=== PATIENT | male | born 1960 | race Caucasian/White ===

== ENCOUNTER 2017-02-06 10:22 | Day surgery (SDC) | payer MEDICARE, MEDICAID ==
[~2017-02-06 10:22] MED LIST: Acetaminophen/HYDROcodone 325-5 MG Tab PO PRN; Lactated Ringers 1,000 ML IV SCH; ceFAZolin 2 GM in Premix Bag 1 BAG IV SCH
--- NOTE | 2017-02-06 10:58 | PCM.PREANE ---
Preanesthetic Assessment - Anesthesia/Transfusion/Family Hx Anesthesia History: Prior Anesthesia Without Reaction Family History of Anesthesia Reaction: No Transfusion History: No Prior Transfusion(s) - Review of Systems General: No Symptoms Pulmonary: No Symptoms Cardiovascular: No Symptoms Gastrointestinal: No Symptoms Neurological: No Symptoms Other: Reports: None - Physical Assessment NPO Status Date: 02/05/17 Height: 1.8 m Weight: 79.379 kg ASA Class: 2 Mental Status: Alert & Oriented x3 Airway Class: Mallampati = 1 Dentition: Reports: Normal Dentition ROM/Head Extension: Full Lungs: Clear to Auscultation, Normal Respiratory Effort Cardiovascular: Regular Rate, Regular Rhythm - Allergies Allergies/Adverse Reactions: Allergies Allergy/AdvReac Type Severity Reaction Status Date / Time No Known Allergies Allergy Verified 01/31/17 13:32 - Anesthesia Plan Pre-Op Medication Ordered: None - Acknowledgements Anesthesia Type Planned: General Anesthesia Pt an Appropriate Candidate for the Planned Anesthesia: Yes Alternatives and Risks of Anesthesia Discussed w Pt/Guardian: Yes Pt/Guardian Understands and Agrees with Anesthesia Plan: Yes Additional Comments: gastric bypass 6 mo ago with sig weight loss, no longer has ROGELIO, DM@, or GERD. Plan GA with LMA or mask because of the size of the ganglion. 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 Psychiatric History: Reports: Depression, Developmental Delay, Learning Disability - Past Surgical History GI Surgical History: Reports: Bariatric Procedure Neurological Surgical History: Reports: Laminectomy Other Neurological Surgeries/Procedures: x2 - SUBSTANCE USE Smoking Status *Q: Never Smoker Recreational Drug Use History: No - HOME MEDS Home Medications: Home Meds Acetaminophen [Tylenol Extra Strength] 500 mg PO Q4H PRN 01/31/17 [History] Aspirin [Adult Low Dose Aspirin EC] 81 mg PO DAILY 01/31/17 [History] Citalopram Hydrobromide [Celexa] 20 mg PO DAILY 01/31/17 [History] Metoprolol Succinate [Toprol XL] 25 mg PO DAILY 01/31/17 [History] Pravastatin Sodium 20 mg PO DAILY 01/31/17 [History] Topiramate [Trokendi Xr] 50 mg PO BID 01/31/17 [History] amLODIPine Besylate [Norvasc] 2.5 mg PO DAILY 01/31/17 [History] - CURRENT (IN HOUSE) MEDS Current Meds: Current Medications Hydrocodone Bitart/Acetaminophen ([place]well 325-5 Mg) 1 - 2 tab PO Q4H PRN PRN Reason: Pain Cefazolin Sodium/Dextrose 2 gm (/ Premix) 50 mls @ 100 mls/hr IV ONCALL JENIFER Lactated Ringer's (Ringers, Lactated) 1,000 mls @ 100 mls/hr IV ASDIRECTED JENIFER
[2017-02-06] MEDS ORDERED: fentaNYL 100 MCG/2 ML SDV ONE (12:20)
[2017-02-06] MEDS ORDERED: Midazolam 1 MG/ML 2 ML SDV ONE (12:20)
[2017-02-06] MEDS ORDERED: Propofol 200 MG/20 ML SDV ONE (12:20)
[2017-02-06] MEDS ORDERED: Dexamethasone 4 MG/ML 5 ML MDV ONE (12:21)
[2017-02-06] MEDS ORDERED: Ondansetron 4 MG/2 ML SDV ONE (12:21)
[2017-02-06] MEDS ORDERED: Bupivacaine 0.25% 10 ML SDV ONE (12:57)
[2017-02-06] MEDS ORDERED: Lidocaine 1% 20 ML MDV ONE (12:57)
[2017-02-06] MEDS ORDERED: fentaNYL 100 MCG/2 ML SDV IVPUSH PRN (13:36)
[2017-02-06] MEDS ORDERED: ePHEDrine 50 MG/ML SDV ONE (14:24)
--- NOTE | 2017-02-06 14:51 | PCM.OPNOTE ---
- General Post-Op/Procedure Note Date of Surgery/Procedure: 02/06/17 Post-Op Diagnosis: left volar wrist ganglion Anesthesia Technique: General LMA Primary Surgeon: Adilia Estrada EBStefan in mLs: 10 Condition: Good Free Text/Narrative:: tt=58 min #[id number]
--- NOTE | 2017-02-06 15:20 | PCM.POSTAN ---
POST ANESTHESIA ASSESSMENT - MENTAL STATUS Mental Status: Alert - RESPIRATORY Respiratory Status: Respiratory Rate WNL, Airway Patent, O2 Saturation Stable - CARDIOVASCULAR CV Status: Pulse Rate WNL, Blood Pressure Stable - GASTROINTESTINAL GI Status: No Symptoms - PAIN Pain Score: 1 - POST OP HYDRATION Hydration Status: Adequate & Stable
--- NOTE | 2017-02-06 15:57 | PCM48HPAN ---
Post Anesthesia Note - EVALUATION WITHIN 48HRS OF ANESTHETIC Vital Signs in Normal Range: Yes Patient Participated in Evaluation: Yes Respiratory Function Stable: Yes Airway Patent: Yes Cardiovascular Function Stable: Yes Hydration Status Stable: Yes Pain Control Satisfactory: Yes Nausea and Vomiting Control Satisfactory: Yes Mental Status Recovered: Yes
[2017-02-06 16:31] VITALS: BP 142/80
--- NOTE | 2017-02-06 20:55 | OR ---
SURGEON: Adilia Estrada MD DATE OF PROCEDURE: 02/06/2017 PREOPERATIVE DIAGNOSIS: Left wrist volar ganglion cyst. POSTOPERATIVE DIAGNOSIS: Left wrist volar ganglion cyst. PROCEDURE: Excision of left wrist volar ganglion cyst. HUMANITIES AND LANGUAGES PROFESSOR: Tori Briggs RN. ANESTHESIA: General. ESTIMATED BLOOD LOSS: 10 mL. TOURNIQUET TIME: 15 minutes. COMPLICATIONS: The radial artery was wrapped around the ganglion. I attempted to carefully dissect this from the ganglion. Upon tourniquet deflation, it was noted that there was a small laceration of the radial artery. The tourniquet was reinflated and the tear was closed with a 5-0 chromic suture. The tourniquet was again deflated and no further bleeding was noted. The artery was able to be visualized and did appear to be intact. He had good blood supply to his hand. IMPLANTS USED: None. BRIEF HISTORY: Fredo is a 56-year-old male, who has had a history of a left wrist volar ganglion. He did have attempted aspiration in [place]. This resulted in recurrence of a ganglion cyst. Due to his lack of response to conservative treatment, I recommended surgical intervention. The risks and goals of procedure were discussed with the patient and were documented preoperatively. He agreed to proceed. DESCRIPTION OF PROCEDURE: The patient was properly identified and brought to the operating room. He was transferred from the OR cart and placed on the operating table in supine position. General anesthesia was administered. After adequate anesthesia was obtained, a well-padded tourniquet was applied to the forearm. The left upper extremity was then prepped in standard fashion using ChloraPrep solution. It was then sterilely draped. A time-out was performed to ensure correct site and procedure. Preoperative antibiotics were given. The surgical site had been marked preoperatively. The tourniquet was inflated to 250 mmHg. A horizontal incision was made centered over the volar ganglion in the natural skin lines. The subcutaneous tissues were incised and the ganglion cyst was identified. He did have some adherent of veins volarly and these were carefully dissected from the cyst and cauterized. The cyst was quite adherent to the underlying tissue and this did take considerable time to free the ganglion cyst. It was then noted that the what appeared to be the radial artery was adherent to the cyst. I carefully dissected this away as well. The ganglion cyst was eventually freed from its soft tissue constraints and was removed. The base of the cyst was cauterized with electrocautery to help prevent recurrence. The wound was then irrigated with saline solution. The tourniquet was deflated. It was immediately noted that there was a large amount of what appeared to be arterial blood flow from the wound. The tourniquet was reinflated. With careful inspection, it was noted that the previous vessel that had been dissected from the cyst did have a small tear in it. 5-0 chromic suture was used to repair the two tears noted in the artery. The tourniquet was again deflated. Further arterial bleeding appeared to be coming from the superficial tissues distal to the site of the repair. The tourniquet was again reinflated and there appeared to be a branch off the radial artery that was also cauterized. The tourniquet was again deflated at this time. No further bleeding was noted from the wound. The artery was able to be visualized and appeared to be bounding. There was no leaking noted. His hand pinked up nicely with deflation of the tourniquet. The subcutaneous tissues were then closed with 3-0 Vicryl. The skin was closed with a running 4-0 Monocryl suture. Steri- Strips and Benzoin were placed. Xeroform gauze was placed over the wound and a bulky dressing was applied. He was placed in a well-padded volar splint. He was awakened from his anesthetic and transferred back to the operating room cart. He was brought to recovery room in stable condition. All needle and sponge counts were correct. DON / YADIRA /[id number]
== END 2017-02-06 16:25 | disposition home or self-care (01) ==
LOC: MW.SDS 10:22
PROVIDERS: ATTEND Orthopaedic Surgery
DX: M67.432 Ganglion, left wrist (principal); E78.00 Pure hypercholesterolemia, unspecified; I10 Essential (primary) hypertension; F32.9 Major depressive disorder, single episode, unspecified; Z79.82 Long term (current) use of aspirin; Z79.899 Other long term (current) drug therapy; Z98.84 Bariatric surgery status; Z98.890 Other specified postprocedural states
CPT/HCPCS: 25111; A9270; J0690; J1100; J2250; J2405; J3010; J7120; 01810; 88304; J2704

== ENCOUNTER 2019-01-14 11:08 | Emergency (ER) | payer MEDICARE, MEDICAID ==
[2019-01-14] MEDS ORDERED: diphenhydrAMINE 50 MG Cap PO ONE (11:19)
[2019-01-14] MEDS ORDERED: methylPREDNISolone Sodium Succinate 125 MG/2 ML SDV IM ONE (11:20)
[2019-01-14 11:24] VITALS: BP 159/87
--- NOTE | 2019-01-14 11:25 | EDM.PDOC ---
ED HPI GENERAL MEDICAL PROBLEM - General Chief Complaint: Bite:Animal, Insect Stated Complaint: BEE STING Time Seen by Provider: 01/14/19 11:16 Source of Information: Reports: Patient History Limitations: Reports: No Limitations - History of Present Illness INITIAL COMMENTS - FREE TEXT/NARRATIVE: HISTORY AND PHYSICAL: History of present illness: Patient is a 58-year-old male presents to the ED today with concern of a bee sting to his middle finger on his right hand that occurred about an hour prior to arrival to the ED. Patient states when he gets on by a bee, he gets a rash all over his body so came to the ED. Patient states he does not become short of breath or have mouth/ throat swelling when he gets stung by a bee. Patient denies taking any medications before coming. Patient denies any other symptoms or concerns. Patient denies fever, chills, chest pain, shortness of breath, or cough. Denies headache, neck stiff ness, change in vision, syncope, or near syncope. Denies nausea, vomiting, abdominal pain, diarrhea, constipation, or dysuria. Has not noted any blood in urine or stool. Patient has been eating and drinking appropriately. Review of systems: As per history of present illness and below otherwise all systems reviewed and negative. Past medical history: As per history of present illness and as reviewed below otherwise noncontributory. Surgical history: As per history of present illness and as reviewed below otherwise noncontributory. Social history: See social history for further information Family history: As per history of present illness and as reviewed below otherwise noncontributory. Physical exam: General: Patient is alert, oriented, and in no acute distress. Patient sitting comfortably on exam table. HEENT: Atraumatic, normocephalic, pupils equal and reactive bilaterally, negative for conjunctival pallor or scleral icterus, mucous membranes moist, TMs normal bilaterally, throat clear, neck supple, nontender, trachea midline. No drooling or trismus noted. No meningeal signs. No hot potato voice noted. Lungs: Clear to auscultation, breath sounds equal bilaterally, chest nontender. Patient breathing comfortably without wheezing or stridor. Heart: S1S2, regular rate and rhythm without overt murmur Abdomen: Soft, nondistended, nontender. Negative for masses or hepatosplenomegaly. Negative for costovertebral tenderness. Pelvis: Stable nontender. Genitourinary: Deferred. Rectal: Deferred. Skin: Intact, warm, dry. No lesions or rashes noted. Extremities: Negative for cords or calf pain. Neurovascular unremarkable. There is a small pinpoint bite/sting laure on patient's right hand medial third digit without surrounding erythema or edema. Patient has full range of motion of the right hand without pain or difficulty. Radial pulses grossly intact with capillary refill less than 2 seconds. Neuro: Awake, alert, oriented. Cranial nerves II through XII unremarkable. Cerebellum unremarkable. Motor and sensory unremarkable throughout. Exam nonfocal. Notes: Discussed the importance for follow-up with primary care provider. Voices understanding and is agreeable to plan of care. Denies any further questions or concerns at this time. Diagnostics: None Therapeutics: Benadryl, Solu-Medrol Prescription: Medrol dose pack Impression: Bee sting, 3rd digit Plan: 1. While symptomatic continue to routinely take Benadryl. Take medication as prescribed. 2. You can alternate ibuprofen and Tylenol as directed for pain and discomfort. 3. Follow up with her primary care provider as discussed. Return to the ED as needed and as discussed. Definitive disposition and diagnosis as appropriate pending reevaluation and review of above. - Related Data Allergies Allergy/AdvReac Type Severity Reaction Status Date / Time No Known Allergies Allergy Verified 02/23/18 13:53 Home Meds: Home Meds Aspirin [Adult Low Dose Aspirin EC] 81 mg PO DAILY 01/31/17 [History] Metoprolol Succinate [Toprol XL] 25 mg PO DAILY 01/31/17 [History] amLODIPine Besylate [Norvasc] 2.5 mg PO DAILY 01/31/17 [History] Latanoprost/Pf [Latanoprost 0.005% Eye Drop] 7.5 ml OP DAILY 02/23/18 [History] Tamsulosin [Tamsulosin 24 Hr] 0.4 mg PO DAILY #10 cap.er 02/23/18 [Rx] traMADol [Ultram] 50 mg PO Q4H PRN #15 tab 02/23/18 [Rx] Past Medical History Other HEENT History: wears glasses Cardiovascular History: Reports: High Cholesterol, Hypertension Neurological History: Reports: Seizure Other Neuro History: 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 ED EXAM, ANIMAL BITE - Physical Exam Exam: See Below (See dictation) Course - Orders/Labs/Meds Orders: Active Orders 24 hr Category Date Time Status methylPREDNISolone Sod Succ [Solu-MEDROL] Med 01/14/19 11:20 Once 125 mg IM ONETIME ONE Medication Orders Methylprednisolone Sodium Succinate (Solu-Medrol) 125 mg IM ONETIME ONE Stop: 01/14/19 11:21 Meds: Medications Generic Name Dose Route Start Last Admin Trade Name Freq PRN Reason Stop Dose Admin Methylprednisolone Sodium Succinate 125 mg 01/14/19 11:20 Solu-Medrol IM 01/14/19 11:21 ONETIME ONE Discontinued Medications Generic Name Dose Route Start Last Admin Trade Name Freq PRN Reason Stop Dose Admin Diphenhydramine HCl 50 mg 01/14/19 11:19 Benadryl PO 01/14/19 11:20 ONETIME ONE Departure - Departure Time of Disposition: 11:24 Disposition: Home, Self-Care 01 Clinical Impression: Bee sting Qualifiers: Encounter type: initial encounter Injury intent: accidental or unintentional Qualified Code(s): T63.441A - Toxic effect of venom of bees, accidental ( unintentional), initial encounter - Discharge Information Referrals: PCP,None [Primary Care Provider] - Additional Instructions: The following information is given to patients seen in the emergency department who are being discharged to home. This information is to outline your options for follow-up care. We provide all patients seen in our emergency department with a follow-up referral. The need for follow-up, as well as the timing and circumstances, are variable depending upon the specifics of your emergency department visit. If you don't have a primary care physician on staff, we will provide you with a referral. We always advise you to contact your personal physician following an emergency department visit to inform them of the circumstance of the visit and for follow-up with them and/or the need for any referrals to a consulting specialist. The emergency department will also refer you to a specialist when appropriate. This referral assures that you have the opportunity for follow-up care with a specialist. All of these measure are taken in an effort to provide you with optimal care, which includes your follow-up. Under all circumstances we always encourage you to contact your private physician who remains a resource for coordinating your care. When calling for follow-up care, please make the office aware that this follow-up is from your recent emergency room visit. If for any reason you are refused follow-up, please contact the [facility] Emergency Department at and asked to speak to the emergency department charge nurse. [facility] [address] [place] [id number] [facility] [address] [place] [id number] 1. While symptomatic continue to routinely take Benadryl. Take medication as prescribed. 2. You can alternate ibuprofen and Tylenol as directed for pain and discomfort. 3. Follow up with her primary care provider as discussed. Return to the ED as needed and as discussed. - My Orders Last 24 Hours: My Active Orders 01/14/19 11:20 methylPREDNISolone Sod Succ [Solu-MEDROL] 125 mg IM ONETIME ONE - Assessment/Plan Last 24 Hours: My Active Orders 01/14/19 11:20 methylPREDNISolone Sod Succ [Solu-MEDROL] 125 mg IM ONETIME ONE
== END 2019-01-14 11:50 | disposition home or self-care (01) ==
LOC: MW.ED 11:08
DX: T63.441A Toxic effect of venom of bees, accidental (unintentional), initial encounter (principal); I10 Essential (primary) hypertension; Z79.82 Long term (current) use of aspirin; Z79.899 Other long term (current) drug therapy
CPT/HCPCS: 99282; A9270; J2930

== ENCOUNTER 2019-02-18 13:53 | Emergency (ER) | payer MEDICARE, MEDICAID ==
[2019-02-18] MEDS ORDERED: Ketorolac 30 MG/ML SDV IVPUSH ONE (14:13)
[2019-02-18] MEDS ORDERED: Ondansetron 4 MG/2 ML SDV IVPUSH ONE (14:13)
[2019-02-18] MEDS ORDERED: Sodium Chloride 0.9% 1,000 ML IV ONE (14:13)
--- NOTE | 2019-02-18 14:26 | EDM.PDOC ---
ED HPI GENERAL MEDICAL PROBLEM - General Chief Complaint: Back Pain or Injury Stated Complaint: BACK PAIN Time Seen by Provider: 02/18/19 14:03 Source of Information: Reports: Patient History Limitations: Reports: No Limitations - History of Present Illness INITIAL COMMENTS - FREE TEXT/NARRATIVE: HISTORY AND PHYSICAL: History of present illness: Patient is a 58-year-old male presenting to the emergency room for complaints of "low back pain". Patient states while picking up boxes today around 10 AM he "bent over and had immediate lower back pain". He states he had to sit down, however this did not help. He rates his pain at a 10 out of 10, stating that he also has pain shooting down his left leg. Patient denies any fever, chills, headache, change in vision, syncope or near syncope. He states he does get frequent kidney stones and has been having dysuria and hematuria. Denies any chest pain, shortness of breath or cough. Denies any abdominal pain, nausea, vomiting, diarrhea, constipation or dysuria. Has not noted any blood in stool. Patient has been eating and drinking appropriately. Review of systems: As per history of present illness and below otherwise all systems reviewed and negative. Past medical history: As per history of present illness and as reviewed below otherwise noncontributory. Surgical history: As per history of present illness and as reviewed below otherwise noncontributory. Social history: See social history for further information Family history: As per history of present illness and as reviewed below otherwise noncontributory. Physical exam: General: Patient is a well-nourished 88-year-old male. Alert and orientated. Nontoxic in appearance and in no acute distress. HEENT: Atraumatic, normocephalic, pupils equal and reactive bilaterally, negative for conjunctival pallor or scleral icterus, mucous membranes moist, TMs normal bilaterally, throat clear, neck supple, nontender, trachea midline. No drooling or trismus noted. No meningeal signs. No hot potato voice noted. Lungs: Clear to auscultation, breath sounds equal bilaterally, chest nontender. Heart: S1S2, regular rate and rhythm without overt murmur Abdomen: Soft, nondistended, nontender. Negative for masses or hepatosplenomegaly. Negative for costovertebral tenderness. C-spine/Back: No pinpoint vertebral tenderness upon palpation. Due to palpation on the right SI joint. No crepitus, step-offs or obvious deformities. Patient is ambulatory into the emergency room without difficulty or deficit. Able to rock back on heels and walk on toes. Denies any urinary or fecal incontinence. Denies any numbness, tingling or saddle paresthesia. Skin: Intact, warm, dry. No lesions or rashes noted. Extremities: Atraumatic, moves all extremities per self without difficulty or deficits, negative for cords or calf pain. Neurovascular unremarkable. Neuro: Awake, alert, oriented. Cranial nerves II through XII unremarkable. Cerebellum unremarkable. Motor and sensory unremarkable throughout. Exam nonfocal. Notes: Ultrasound shows a cyst within the liver. Small gallstones in the gallbladder. No acute findings are noted. Lab work is unremarkable. Patient states he previously had been on Ultram for his back pain but this medication "was " upon trying to get a refill. He states the Toradol was not alleviating his discomfort, we'll give him a few tablets of Ultram as he has found good relief with this in the past. Encouraged him to follow up with his primary care provider for further refills and further management of his chronic back pain. Supportive care measures were reviewed and discussed. Voices understanding and is agreeable to plan of care. Denies any further questions or concerns at this time. Diagnostics: UA, CBC, CMP, CT of abdomen and pelvis w/o Therapeutics: IV fluids, Toradol, Zofran Prescription: Ultram (#15) Impression: Lumbar Back Pain Plan: 1. Increase your oral fluids. 2. Tylenol and/or ibuprofen as needed for pain. 3. Follow-up with your primary care provider as we discussed. Return to the ED as needed and as discussed. Definitive disposition and diagnosis as appropriate pending reevaluation and review of above. Lower Back Pain Score (Numeric/FACES): 10 - Related Data Allergies Allergy/AdvReac Type Severity Reaction Status Date / Time bees Allergy Rash Uncoded 02/18/19 14:06 Home Meds: Home Meds Aspirin [Adult Low Dose Aspirin EC] 81 mg PO DAILY 01/31/17 [History] Metoprolol Succinate [Toprol XL] 25 mg PO DAILY 01/31/17 [History] amLODIPine Besylate [Norvasc] 2.5 mg PO DAILY 01/31/17 [History] Latanoprost/Pf [Latanoprost 0.005% Eye Drop] 7.5 ml OP DAILY 02/23/18 [History] Tamsulosin [Tamsulosin 24 Hr] 0.4 mg PO DAILY #10 cap.er 02/23/18 [Rx] traMADol [Ultram] 50 mg PO Q4H PRN #15 tab 02/23/18 [Rx] Past Medical History - Past Health History Medical/Surgical History: Denies Medical/Surgical History Other HEENT History: wears glasses Cardiovascular History: Reports: High Cholesterol, Hypertension Musculoskeletal History: Reports: Back Pain, Chronic Other Musculoskeletal History: back sx Neurological History: Reports: Seizure Other Neuro History: 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", 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 Psychiatric History: Reports: Depression, Developmental Delay, Learning Disability - Infectious Disease History Infectious Disease History: Reports: None - Past Surgical History GI Surgical History: Reports: Bariatric Procedure Neurological Surgical History: Reports: Laminectomy Other Neurological Surgeries/Procedures: x2 Social & Family History - Family History Family Medical History: Noncontributory - Tobacco Use Smoking Status *Q: Never Smoker - Caffeine Use Caffeine Use: Reports: None - Recreational Drug Use Recreational Drug Use: No ED ROS GENERAL - Review of Systems Review Of Systems: ROS reveals no pertinent complaints other than HPI. ED EXAM,LOWER BACK PAIN/INJURY - Physical Exam Exam: See Below (See dictation) Course - Vital Signs Last Recorded V/S: Last Vital Signs Temp 96.8 F 02/18/19 14:04 Pulse 70 02/18/19 14:04 Resp 18 02/18/19 14:04 BP 136/87 02/18/19 14:04 Pulse Ox 98 02/18/19 14:04 - Orders/Labs/Meds Labs: Laboratory Tests 02/18/19 02/18/19 02/18/19 Range/Units 14:30 14:30 15:45 WBC 6.57 (4.0-11.0) K/uL RBC 4.43 L (4.50-5.90) M/uL Hgb 13.1 (13.0-17.0) g/dL Hct 41.1 (38.0-50.0) % MCV 92.8 (80.0-98.0) fL MCH 29.6 (27.0-32.0) pg MCHC 31.9 (31.0-37.0) g/dL RDW Std Deviation 48.4 (28.0-62.0) fl RDW Coeff of Lani 14 (11.0-15.0) % Plt Count 298 (150-400) K/uL MPV 10.10 (7.40-12.00) fL Neut % (Auto) 69.0 (48.0-80.0) % Lymph % (Auto) 23.7 (16.0-40.0) % [place] % (Auto) 5.6 (0.0-15.0) % Eos % (Auto) 1.1 (0.0-7.0) % Baso % (Auto) 0.6 (0.0-1.5) % Neut # (Auto) 4.5 (1.4-5.7) K/uL Lymph # (Auto) 1.6 (0.6-2.4) K/uL Deuel # (Auto) 0.4 (0.0-0.8) K/uL Eos # (Auto) 0.1 (0.0-0.7) K/uL Baso # (Auto) 0.0 (0.0-0.1) K/uL Nucleated RBC % 0.0 /100WBC Nucleated RBCs # 0 K/uL Sodium 143 (136-148) mmol/L Potassium 4.1 (3.5-5.1) mmol/L Chloride 105 (98-107) mmol/L Carbon Dioxide 28.1 (21.0-32.0) mmol/L BUN 12 (7.0-18.0) mg/dL Creatinine 0.9 (0.8-1.3) mg/dL Est Cr Clr Drug Dosing 96.45 mL/min Estimated GFR (MDRD) > 60.0 ml/min Glucose 82 (74-106) mg/dL Calcium 9.2 (8.5-10.1) mg/dL Total Bilirubin 0.4 (0.2-1.0) mg/dL AST 26 (15-37) IU/L ALT 24 (14-63) IU/L Alkaline Phosphatase 72 (46-116) U/L Total Protein 7.2 (6.4-8.2) g/dL Albumin 3.8 (3.4-5.0) g/dL Globulin 3.4 (2.6-4.0) g/dL Albumin/Globulin Ratio 1.1 (0.9-1.6) Urine Color YELLOW Urine Appearance SLT CLOUDY Urine pH 8.0 (5.0-8.0) Ur Specific [place] 1.020 (1.001-1.035) Urine Protein NEGATIVE (NEGATIVE) mg/dL Urine Glucose (UA) NEGATIVE (NEGATIVE) mg/dL Urine Ketones TRACE H (NEGATIVE) mg/dL Urine Occult Blood NEGATIVE (NEGATIVE) Urine Nitrite NEGATIVE (NEGATIVE) Urine Bilirubin NEGATIVE (NEGATIVE) Urine Urobilinogen 0.2 (<2.0) EU/dL Ur Leukocyte Esterase NEGATIVE (NEGATIVE) Meds: Medications Discontinued Medications Generic Name Dose Route Start Last Admin Trade Name Bonifacioq PRN Reason Stop Dose Admin Sodium Chloride 1,000 mls @ 999 mls/hr 02/18/19 14:13 02/18/19 14:32 Normal Saline IV 02/18/19 15:13 999 mls/hr STAT ONE Administration Ketorolac Tromethamine 30 mg 02/18/19 14:13 02/18/19 14:32 Toradol IVPUSH 02/18/19 14:14 30 mg ONETIME ONE Administration Ondansetron HCl 4 mg 02/18/19 14:13 02/18/19 14:32 Zofran IVPUSH 02/18/19 14:14 4 mg ONETIME ONE Administration Departure - Departure Time of Disposition: 16:06 Disposition: Home, Self-Care 01 Clinical Impression: Lumbar back pain - Discharge Information Instructions: Chronic Back Pain, [id number] Referrals: Jose Lowe MD [Primary Care Provider] - Forms: ED Department Discharge Additional Instructions: The following information is given to patients seen in the emergency department who are being discharged to home. This information is to outline your options for follow-up care. We provide all patients seen in our emergency department with a follow-up referral. The need for follow-up, as well as the timing and circumstances, are variable depending upon the specifics of your emergency department visit. If you don't have a primary care physician on staff, we will provide you with a referral. We always advise you to contact your personal physician following an emergency department visit to inform them of the circumstance of the visit and for follow-up with them and/or the need for any referrals to a consulting specialist. The emergency department will also refer you to a specialist when appropriate. This referral assures that you have the opportunity for follow-up care with a specialist. All of these measure are taken in an effort to provide you with optimal care, which includes your follow-up. Under all circumstances we always encourage you to contact your private physician who remains a resource for coordinating your care. When calling for follow-up care, please make the office aware that this follow-up is from your recent emergency room visit. If for any reason you are refused follow-up, please contact the [facility] Emergency Department at and asked to speak to the emergency department charge nurse. [facility] [address] [place] [address] [id number] [address] [address] 1. Increase your oral fluids. 2. Tylenol and/or ibuprofen as needed for pain. 3. Follow-up with your primary care provider as we discussed. Return to the ED as needed and as discussed.
[2019-02-18 15:05] LABS: BLOOD UREA NITROGEN,BUN 12 mg/dL (7.0-18.0); CARBON DIOXIDE,CO2 28.1 mmol/L (21.0-32.0); CHLORIDE,CL 105 mmol/L (98-107); GLUCOSE RANDOM 82 mg/dL (74-106); POTASSIUM,K 4.1 mmol/L (3.5-5.1); SODIUM,NA 143 mmol/L (136-148)
--- NOTE | 2019-02-18 15:55 | CT ---
CT abdomen and pelvis Technique: Multiple axial sections were obtained from above the dome of the diaphragm inferiorly through the pubic symphysis. Intravenous contrast and oral contrast not utilized. Study has been performed as a ureteral stone protocol. Findings: Multiple phleboliths are seen within the pelvis. Kidneys show no abnormal calcifications. No ureteral dilatation is seen. No abnormal calcifications are seen along the course of the ureters. No bladder calculi are seen. Visualized lung bases show nothing acute. Multiple low density lesions are seen within the liver. Larger low density findings have Hounsfield unit measurements of cysts which most likely represent a similar etiology of the smaller lesions. Spleen appears within normal limits. Moderate-sized hiatal hernia is seen. Previous gastric surgery is noted. Gallbladder contains minimal areas of increased density presumably due to small gallstones. Pancreas shows no discrete abnormality but shows fatty replacement. Aorta shows no aneurysm. Atherosclerotic calcification is seen within the iliac veins. No retroperitoneal adenopathy or mesenteric abnormalities are seen. Appendix is seen which is normal in size. No pelvic mass or adenopathy is seen. No free fluid or inflammatory change is seen. Bone window settings were reviewed which shows surgery with transpedical screws at L3 through S1. This causes some artifact on this exam. Scattered degenerative change is seen throughout other levels of the lumbar and lower thoracic spine. Impression: 1. Cysts within the liver. 2. Small gallstones within the gallbladder. 3. Other findings which are felt to be incidental as described above. 4. Nothing acute is seen. No renal calculi, ureteral dilatation or ureteral stone is seen. Diagnostic code #2 MTDD
[2019-02-18 17:50] VITALS: BP 147/87; PULSE 62
== END 2019-02-18 16:20 | disposition home or self-care (01) ==
LOC: MW.ED 13:53
DX: M54.5 Low back pain (principal); I10 Essential (primary) hypertension; Z79.82 Long term (current) use of aspirin; Z79.899 Other long term (current) drug therapy; Z91.030 Bee allergy status; X50.9XXA Other and unspecified overexertion or strenuous movements or postures, initial encounter; Y93.89 Activity, other specified
CPT/HCPCS: 36415; 74176; 80053; 81003; 85025; 96361; 96374; 96375; 99284; J1885; J2405; J7040

== ENCOUNTER 2019-06-23 19:41 | Emergency (ER) | payer MEDICARE, MEDICAID ==
--- NOTE | 2019-06-23 20:07 | EDM.PDOC ---
ED HPI GENERAL MEDICAL PROBLEM - General Chief Complaint: Cardiovascular Problem Stated Complaint: HIGH BLOOD PRESSURE Time Seen by Provider: 06/23/19 19:51 Source of Information: Reports: Patient, Provider History Limitations: Reports: No Limitations - History of Present Illness INITIAL COMMENTS - FREE TEXT/NARRATIVE: CC hypertension HPI: This is a pleasant 59-year-old male who has chronic back and shoulder pain secondary to previous surgeries and loosening of hardware. Patient's been having his blood pressure checked which is been as high as 200/110 he denies any headache blurry vision slurred speech numbness weakness tingling chest pain shortness of breath decrease in urine output or other complaints he does take his medications for blood pressure on a regular basis. PMHX/PSHX: Hypertension back surgery shoulder surgery Social History: Negative for tobacco, negative for alcohol, negative for street drugs or marijuana Family history: Hypertension ROS: see chart PE: VS afebrile vital signs stable General: No apparent distress Head: Atraumatic normocephalic no lumps bumps or bruises Eyes: EOMI PERRLA Ears: TMs intact no hemotympanum no signs of infection no mastoid tenderness Nose: No epistaxis nares patent no septal wall hematoma Throat: No pharyngeal erythema or exudate no tonsillar enlargement Neck: Supple, no cervical lymphadenopathy Chest wall: No point tenderness Heart: Regular rate and rhythm without murmur gallop or rub Lungs: Clear to auscultation and percussion without rales rhonchi or wheeze Abdomen: Soft nontender nondistended without guarding rigidity or rebound Neck: No spinal point tenderness full range of motion in all 6 directions Back: No spinal paraspinal or CVA tenderness Extremities: full rom through out. no effusions skin: Warm dry intact no rashes neurologic: cranial nerves II through XII intact. No focal motor or sensory deficits noted MDM: Differential diagnosis: Hypertensive urgency ED course: Patient's pressure here is 160/100. EKG is entirely normal. Patient does not have any other concerning symptoms as of any endorgan damage. Patient advised to take his blood pressure twice daily and after a week take that data to his primary care doctor to see if his medications need to be adjusted. No signs of any intracranial bleeding stroke CVA FL renal failure retinopathy or any other signs of endorgan damage. Patient stable for discharge Diagnosis: Hypertension Disposition: Home back Pain Score (Numeric/FACES): 10 - Related Data Allergies Allergy/AdvReac Type Severity Reaction Status Date / Time bees Allergy Rash Uncoded 06/23/19 20:01 Home Meds: Home Meds Aspirin [Adult Low Dose Aspirin EC] 81 mg PO DAILY 01/31/17 [History] Metoprolol Succinate [Toprol XL] 25 mg PO DAILY 01/31/17 [History] amLODIPine Besylate [Norvasc] 2.5 mg PO DAILY 01/31/17 [History] Latanoprost/Pf [Latanoprost 0.005% Eye Drop] 7.5 ml OP DAILY 02/23/18 [History] Tamsulosin [Tamsulosin 24 Hr] 0.4 mg PO DAILY #10 cap.er 02/23/18 [Rx] traMADol [Ultram] 50 mg PO Q4H PRN #15 tab 02/23/18 [Rx] traMADol [Ultram] 50 mg PO Q4H PRN #15 tab 02/18/19 [Rx] Past Medical History - Past Health History Medical/Surgical History: Denies Medical/Surgical History Other HEENT History: wears glasses Cardiovascular History: Reports: High Cholesterol, Hypertension Musculoskeletal History: Reports: Back Pain, Chronic Other Musculoskeletal History: back sx Neurological History: Reports: Seizure Other Neuro History: 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", 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 ED EXAM, GENERAL - Physical Exam Exam: See Below Reason Not Obtained: see my dictation Course - Vital Signs Last Recorded V/S: Last Vital Signs Temp 36.3 C 06/23/19 19:50 Pulse 80 06/23/19 20:00 Resp 17 06/23/19 20:00 BP 169/107 H 06/23/19 20:00 Pulse Ox 96 06/23/19 19:50 Departure - Departure Time of Disposition: 20:05 Disposition: Home, W Home Health Agency 06 Clinical Impression: Hypertension Qualifiers: Hypertension type: unspecified Qualified Code(s): I10 - Essential (primary) hypertension Instructions: How to Take Your Blood Pressure Referrals: Jose Lowe MD [Primary Care Provider] - Additional Instructions: Your blood pressure twice daily. Keep a record of these numbers. After a week take this data to see your primary care doctor to see if your medications need to be adjusted. Follow-up with your orthopedic surgeon as soon as possible to get your shoulder and back pain addressed more comprehensively Sepsis Event Note - Evaluation Sepsis Screening Result: No Definite Risk - Focused Exam Vital Signs: Vital Signs Temp Pulse Resp BP Pulse Ox 06/23/19 20:00 80 17 169/107 H 06/23/19 19:50 36.3 C 82 18 173/109 H 96 Date Exam was Performed: 06/23/19 Time Exam was Performed: 20:02
[2019-06-23 20:24] VITALS: BP 171/96; PULSE 78
== END 2019-06-23 20:22 | disposition home health service (06) ==
LOC: MW.ED 19:41
DX: I10 Essential (primary) hypertension (principal); Z91.030 Bee allergy status; Z79.82 Long term (current) use of aspirin; Z79.899 Other long term (current) drug therapy
CPT/HCPCS: 93005; 99283-25

== ENCOUNTER 2019-11-10 16:45 | Emergency (ER) | payer MEDICARE, MEDICAID ==
--- NOTE | 2019-11-10 17:20 | EDM.PDOC ---
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 Patient is complaining of "hurts when I pee" and diffuse abdominal pain. The patient denies fever, vomiting. This is confirmed by care homehome economist consumer service. He has been eating and drinking and had lunch today. He recently returned from a trip by plane to [place]. right sided abodominal Pain Score (Numeric/FACES): 8 - Related Data Allergies Allergy/AdvReac Type Severity Reaction Status Date / Time bees Allergy Rash Uncoded 11/10/19 16:56 Home Meds: Home Meds Aspirin [Adult Low Dose Aspirin EC] 81 mg PO DAILY 01/31/17 [History] Metoprolol Succinate [Toprol XL] 25 mg PO DAILY 01/31/17 [History] amLODIPine Besylate [Norvasc] 2.5 mg PO DAILY 01/31/17 [History] Latanoprost/Pf [Latanoprost 0.005% Eye Drop] 7.5 ml OP DAILY 02/23/18 [History] C Naltrexone 2 mg 11/10/19 [History] Cbd Ointment 11/10/19 [History] DULoxetine [Cymbalta] 2 tab PO DAILY 11/10/19 [History] Divalproex Sodium [Depakote] 250 mg PO BID 11/10/19 [History] Past Medical History - Past Health History Medical/Surgical History: Denies Medical/Surgical History Other HEENT History: wears glasses Cardiovascular History: Reports: High Cholesterol, Hypertension Gastrointestinal History: Reports: None Musculoskeletal History: Reports: Back Pain, Chronic Other Musculoskeletal History: back sx Neurological History: Reports: Seizure Other Neuro History: 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", 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 Psychiatric History: Reports: Depression, Developmental Delay, Learning Disability - Infectious Disease History Infectious Disease History: Reports: None - Past Surgical History GI Surgical History: Reports: Bariatric Procedure Neurological Surgical History: Reports: Laminectomy Other Neurological Surgeries/Procedures: x2 Social & Family History - Family History Family Medical History: Noncontributory - Tobacco Use Smoking Status *Q: Never Smoker - Caffeine Use Caffeine Use: Reports: None - Recreational Drug Use Recreational Drug Use: No ED ROS GENERAL - Review of Systems Review Of Systems: Comprehensive ROS is negative, except as noted in HPI. ED EXAM, GI/ABD - Physical Exam Exam: See Below Exam Limited By: No Limitations General Appearance: Alert, No Apparent Distress Ears: Normal External Exam Nose: Normal Inspection Throat/Mouth: Normal Inspection Head: Atraumatic, Normocephalic Neck: Normal Inspection Respiratory/Chest: No Respiratory Distress, Lungs Clear, Normal Breath Sounds Cardiovascular: Normal Peripheral Pulses, Regular Rate, Rhythm, No Murmur GI/Abdominal Exam: Normal Bowel Sounds, Soft, Non-Tender, No Distention Neurological: Alert, Oriented, Other (Baseline per care homehome economist consumer service) Psychiatric: Normal Affect, Normal Mood Skin Exam: Warm, Dry, Intact, Normal Color, No Rash Lymphatic: No Adenopathy Course - Vital Signs Last Recorded V/S: Last Vital Signs Temp 36.4 C 11/10/19 16:53 Pulse 82 11/10/19 16:53 Resp 16 11/10/19 16:53 BP 160/88 H 11/10/19 16:53 Pulse Ox 100 11/10/19 16:53 - Orders/Labs/Meds Labs: Laboratory Tests 11/10/19 11/10/19 11/10/19 Range/Units 17:00 17:10 17:10 WBC 6.37 (4.0-11.0) K/uL RBC 4.98 (4.50-5.90) M/uL Hgb 14.9 (13.0-17.0) g/dL Hct 46.0 (38.0-50.0) % MCV 92.4 (80.0-98.0) fL MCH 29.9 (27.0-32.0) pg MCHC 32.4 (31.0-37.0) g/dL RDW Std Deviation 45.8 (28.0-62.0) fl RDW Coeff of Lani 14 (11.0-15.0) % Plt Count 242 (150-400) K/uL MPV 10.20 (7.40-12.00) fL Neut % (Auto) 56.7 (48.0-80.0) % Lymph % (Auto) 28.4 (16.0-40.0) % [place] % (Auto) 11.0 (0.0-15.0) % Eos % (Auto) 3.3 (0.0-7.0) % Baso % (Auto) 0.6 (0.0-1.5) % Neut # (Auto) 3.6 (1.4-5.7) K/uL Lymph # (Auto) 1.8 (0.6-2.4) K/uL [place] # (Auto) 0.7 (0.0-0.8) K/uL Eos # (Auto) 0.2 (0.0-0.7) K/uL Baso # (Auto) 0.0 (0.0-0.1) K/uL Nucleated RBC % 0.0 /100WBC Nucleated RBCs # 0 K/uL Sodium 143 (136-148) mmol/L Potassium 4.2 (3.5-5.1) mmol/L Chloride 106 (98-107) mmol/L Carbon Dioxide 31.0 (21.0-32.0) mmol/L BUN 10 (7.0-18.0) mg/dL Creatinine 0.9 (0.8-1.3) mg/dL Est Cr Clr Drug Dosing 95.29 mL/min Estimated GFR (MDRD) > 60.0 ml/min Glucose 105 (74-106) mg/dL Calcium 8.7 (8.5-10.1) mg/dL Total Bilirubin 0.3 (0.2-1.0) mg/dL AST 23 (15-37) IU/L ALT 27 (14-63) IU/L Alkaline Phosphatase 70 (46-116) U/L Total Protein 7.2 (6.4-8.2) g/dL Albumin 3.9 (3.4-5.0) g/dL Globulin 3.3 (2.6-4.0) g/dL Albumin/Globulin Ratio 1.2 (0.9-1.6) Urine Color YELLOW Urine Appearance SLT CLOUDY Urine pH 8.0 (5.0-8.0) Ur Specific [place] 1.020 (1.001-1.035) Urine Protein NEGATIVE (NEGATIVE) mg/dL Urine Glucose (UA) NEGATIVE (NEGATIVE) mg/dL Urine Ketones NEGATIVE (NEGATIVE) mg/dL Urine Occult Blood NEGATIVE (NEGATIVE) Urine Nitrite NEGATIVE (NEGATIVE) Urine Bilirubin NEGATIVE (NEGATIVE) Urine Urobilinogen 0.2 (<2.0) EU/dL Ur Leukocyte Esterase NEGATIVE (NEGATIVE) Urine RBC 0-4 (0-2/HPF) Urine WBC 0-4 (0-5/HPF) Ur Epithelial Cells FEW (NONE-FEW) Amorphous Sediment MODERATE (NEGATIVE) Urine Bacteria 1+ H (NEGATIVE) - Re-Assessments/Exams Free Text/Narrative Re-Assessment/Exam: 11/10/19 17:52 Discussion care homehome economist consumer service. The patient's labs and urinalysis are completely normal. The attendant states that he is somewhat unreliable and will sometimes "make things up". His exam was entirely normal and seemed to be open to suggestion. Departure - Departure Time of Disposition: 17:53 Disposition: Home, Self-Care 01 Condition: Good Clinical Impression: Feared condition not demonstrated - Discharge Information Referrals: Jose Lowe MD [Primary Care Provider] - Forms: ED Department Discharge Additional Instructions: The following information is given to patients seen in the emergency department who are being discharged to home. This information is to outline your options for follow-up care. We provide all patients seen in our emergency department with a follow-up referral. The need for follow-up, as well as the timing and circumstances, are variable depending upon the specifics of your emergency department visit. If you don't have a primary care physician on staff, we will provide you with a referral. We always advise you to contact your personal physician following an emergency department visit to inform them of the circumstance of the visit and for follow-up with them and/or the need for any referrals to a consulting specia list. The emergency department will also refer you to a specialist when appropriate. This referral assures that you have the opportunity for follow-up care with a specialist. All of these measure are taken in an effort to provide you with optimal care, which includes your follow-up. Under all circumstances we always encourage you to contact your private physician who remains a resource for coordinating your care. When calling for follow-up care, please make the office aware that this follow-up is from your recent emergency room visit. If for any reason you are refused follow-up, please contact the [facility] Emergency Department at and asked to speak to the emergency department charge nurse. Sepsis Event Note (ED) - Evaluation Sepsis Screening Result: No Definite Risk - Focused Exam Vital Signs: Vital Signs Temp Pulse Resp BP Pulse Ox 11/10/19 16:53 36.4 C 82 16 160/88 H 100
[2019-11-10 17:48] LABS: BLOOD UREA NITROGEN,BUN 10 mg/dL (7.0-18.0); CHLORIDE,CL 106 mmol/L (98-107); GLUCOSE RANDOM 105 mg/dL (74-106); POTASSIUM,K 4.2 mmol/L (3.5-5.1); SODIUM,NA 143 mmol/L (136-148)
[2019-11-10 18:17] VITALS: BP 140/81; PULSE 75
== END 2019-11-10 18:15 | disposition home or self-care (01) ==
LOC: MW.ED 16:45
DX: Z71.1 Person with feared health complaint in whom no diagnosis is made (principal); E78.00 Pure hypercholesterolemia, unspecified; I10 Essential (primary) hypertension; F32.9 Major depressive disorder, single episode, unspecified; R56.9 Unspecified convulsions; Z91.030 Bee allergy status; Z79.82 Long term (current) use of aspirin; Z79.899 Other long term (current) drug therapy
CPT/HCPCS: 36415; 80053; 81001; 85025; 99284

== ENCOUNTER 2021-06-09 20:08 | Emergency (ER) | payer MEDICARE, MEDICAID ==
[2021-06-09] MEDS ORDERED: Ibuprofen 600 MG Tab PO ONE ×2 (22:32→23:53)
[2021-06-09] MEDS ORDERED: Acetaminophen/oxyCODONE 325-5 MG Tab PO ONE (23:53)
[2021-06-09] MEDS ORDERED: Dexamethasone 10 MG/ML SDV IM STA (23:53)
[2021-06-10 03:06] VITALS: BP 143/95; PULSE 92
== END 2021-06-10 01:50 | disposition home or self-care (01) ==
LOC: MW.ED 20:08
DX: M54.42 Lumbago with sciatica, left side (principal); E78.00 Pure hypercholesterolemia, unspecified; I10 Essential (primary) hypertension; Z91.030 Bee allergy status; Z79.82 Long term (current) use of aspirin
CPT/HCPCS: 72131; 72192; 96372; 99283; A9270; J1100

== ENCOUNTER 2023-04-29 08:23 | Day surgery (SDC) | payer MEDICARE, MEDICAID ==
[~2023-04-29 08:23] MED LIST changes: -Acetaminophen/HYDROcodone 325-5 MG Tab PO PRN; -ceFAZolin 2 GM in Premix Bag 1 BAG IV SCH
[2023-04-29] MEDS ORDERED: Propofol 200 MG/20 ML SDV ONE ×2 (08:57→09:22)
[2023-04-29] MEDS ORDERED: Lidocaine 2% 5 ML SDV ONE (08:57)
[2023-04-29] MEDS ORDERED: Lactated Ringers 1,000 ML IV SCH (09:45)
[2023-04-29 10:55] VITALS: BP 113/68; PULSE 57
== END 2023-04-29 10:21 | disposition home or self-care (01) ==
LOC: MW.SDS 08:23
PROVIDERS: ATTEND Surgery
DX: D12.2 Benign neoplasm of ascending colon (principal); D12.3 Benign neoplasm of transverse colon; I10 Essential (primary) hypertension; F32.A Depression, unspecified; K21.9 Gastro-esophageal reflux disease without esophagitis; Z79.82 Long term (current) use of aspirin; Z79.899 Other long term (current) drug therapy; Z91.030 Bee allergy status
CPT/HCPCS: 00811; 45380; 88305; J2704; J3490; J7120